=== PATIENT | male | born 1955 | race American Indian/Alaskan Native ===

== ENCOUNTER 2019-07-01 09:56 | Inpatient (IN) | payer OTHER ==
--- NOTE | 2019-07-01 10:59 | Cat Scan Report ---
CT head/brain wo con INDICATION / CLINICAL INFORMATION: 64 years Male; Numbness to right extremities. TECHNIQUE: Routine CT head without contrast. All CT scans at this location are performed using CT dos e reduction for ALARA by means of automated exposure control. COMPARISON: None. FINDINGS: BRAIN / INTRACRANIAL CONTENTS: No acute hemorrhage, mass effect, midline shift, hydrocephalus, or acu te, large territorial infarct. No chronic infarct or atrophy appreciated. There are minimal areas of decreased attenuation in the white matter of the cerebral hemispheres, as well as the anterior gangliocapsular region on the right. These are nonspecific findings and may be r elated to microangiopathy (hypertension, diabetes, atherosclerosis), given the patient's age. CRANIOCERVICAL JUNCTION: No significant abnormality. ORBITS: No significant abnormality of visualized orbits. SINUSES / MASTOIDS: Moderate opacification of the ethmoids seen-left greater than right. ADDITIONAL FINDINGS: None. IMPRESSION: 1. No focal mass, hemorrhage, hydrocephalus, or acute, large territorial infarct. This exam was performed as part of a code stroke protocol. The exam was completed on 07/01/2019 9:45 A M. The exam was reviewed at 9:[address] Huizar was notified at 9:59 AM. Signer Name: Johny Coronado MD, III Signed: 07/01/2019 10:54 AM Workstation Name: [id number]
[2019-07-01 11:02] LABS: Basophils # (Auto) 0.1 K/mm3 (0.0-0.1); Basophils % (Auto) 0.9 % (0.0-1.8); Eosinophils # (Auto) 0.4 K/mm3 (0.0-0.4); Eosinophils % (Auto) 3.8 % (0.0-4.3); Hematocrit 45.7 % (35.5-45.6); Hemoglobin 15.7 gm/dl (11.8-15.2); Lymphocytes # (Auto) 1.9 K/mm3 (1.2-5.4); Lymphocytes % (Auto) 20.3 % (13.4-35.0); Mean Corpuscular HGB Conc 34 % (32-34); Mean Corpuscular Volume 98 fl (84-94); Monocytes # (Auto) 0.5 K/mm3 (0.0-0.8); Monocytes % (Auto) 5.2 % (0.0-7.3); Platelet Count 345 K/mm3 (140-440); Red Blood Count 4.66 M/mm3 (3.65-5.03); Red Cell Distribution Width 13.7 % (13.2-15.2)
--- NOTE | 2019-07-01 11:05 | Emergency Department Report ---
HPI - General Chief Complaint: Neuro Symptoms/Deficit Time Seen by Provider: 07/01/19 10:38 - HPI HPI: 64-year-old male presents to the emergency department with the complaints of some numbness and weakness to his right side. He woke up this mor anisa around 8:30 AM and was feeling normal at that time. About 30 minutes later the patient started to notice some numbness in the right pinky finger. This progressively spread to his right arm and he began feeling as if the right arm was weak. He then noticed some numbness in the right leg and the right side of his face and this is when he drove himself in to be seen. A code stroke was initiated secondary to these symptoms. The patient has a past medical history of hypertension. He is a smoker but denies any illicit drug use. He has a new primary care physician but does not currently know their name. He did not take anything for his symptoms prior to presentation. ED Past Medical Hx - Past Medical History Hx Hypertension: Yes - Surgical History Past Surgical History?: Yes Additional Surgical History: hernia - Social History Smoking Status: Current Every Day Smoker Substance Use Type: None ED Review of Systems ROS: Stated complaint: RT SIDE NUMBNESS Other details as noted in HPI Comment: All other systems reviewed and negative Constitutional: denies: chills, fever Eyes: denies: eye pain, vision change ENT: denies: ear pain, throat pain Respiratory: denies: cough, shortness of breath Cardiovascular: denies: chest pain, palpitations Gastrointestinal: denies: abdominal pain, vomiting Genitourinary: denies: dysuria, discharge Musculoskeletal: denies: back pain, arthralgia Skin: denies: rash, lesions Neurological: weakness, numbness. denies: headache Physical Exam - Physical Exam Vital Signs: Vital Signs 07/01/19 07/01/19 07/01/19 10:03 10:22 10:49 Temperature 97.4 F L 97.4 F L 97.9 F Pulse Rate 83 83 75 Respiratory 18 16 9 L Rate Blood Pressure 151/94 Blood Pressure 151/94 154/94 [Right] O2 Sat by Pulse 98 98 98 Oximetry Physical Exam: GENERAL: The patient is well-developed well-nourished. HEENT: Normocephalic. Atraumatic. Patient has moist mucous membranes. EYES: Extraocular motions are intact. NECK: Supple. Trachea is midline. CHEST/LUNGS: Clear to auscultation. There is no respiratory distress noted. HEART/CARDIOVASCULAR: Regular. There is no tachycardia. There is no murmur. ABDOMEN: Abdomen is soft, nontender. Patient has normal bowel sounds. There is no abdominal distention. SKIN:Skin is warm and dry. . NEURO: The patient is awake, alert, and oriented. The patient is cooperative. No motor deficits. No slurred speech. There is some subjective decreased sensation to the right hand and right side of the face when compared to the left. Normal speech. No pronator drift. No dysmetria. MUSCULOSKELETAL: There is no tenderness or deformity. There is no limitation range of motion. There is no evidence of acute injury. ED Course Vital Signs 07/01/19 07/01/19 07/01/19 10:03 10:22 10:49 Temperature 97.4 F L 97.4 F L 97.9 F Pulse Rate 83 83 75 Respiratory 18 16 9 L Rate Blood Pressure 151/94 Blood Pressure 151/94 154/94 [Right] O2 Sat by Pulse 98 98 98 Oximetry ED Medical Decision Making - Lab Data Result diagrams: 07/01/19 10:50 07/01/19 10:50 - EKG Data -: EKG Interpreted by Nv EKG shows normal: sinus rhythm, axis, intervals, QRS complexes, ST-T waves Rate: normal - EKG Data When compared to previous EKG there are: previous EKG unavailable Interpretation: normal EKG - Radiology Data Radiology results: report reviewed CT head/brain wo con INDICATION / CLINICAL INFORMATION: 64 years Male; Numbness to right extremities. TECHNIQUE: Routine CT head without contrast. All CT scans at this location are performed using CT dose reduction for ALARA by means of automated exposure control. COMPARISON: None. FINDINGS: BRAIN / INTRACRANIAL CONTENTS: No acute hemorrhage, mass effect, midline shift, hydrocephalus, or acute, large territorial infarct. No chronic infarct or atrophy appreciated. There are minimal areas of decreased attenuation in the white matter of the cerebral hemispheres, as well as the anterior gangliocapsular region on the right. These are nonspecific findings and may be related to microangiopathy (hypertension, diabetes, atherosclerosis), given the patient's age. CRANIOCERVICAL JUNCTION: No significant abnormality. ORBITS: No significant abnormality of visualized orbits. SINUSES / MASTOIDS: Moderate opacification of the ethmoids seen-left greater than right. ADDITIONAL FINDINGS: None. IMPRESSION: 1. No focal mass, hemorrhage, hydrocephalus, or acute, large territorial infarct. - Medical Decision Making His patient presents to the emergency department with some right arm weakness and right sided numbness that started after the patient woke up. For this windy son a code stroke was initiated. CT scan of the head without contrast did not show any mass, bleed, hydrocephalus, large territorial infarct, or any other acute process. The patient was seen by the telemedicine neurologist gave him a NIH stroke scale of 1 did not feel the patient was a TPA candidate. He did not feel that it was consistent with a large territorial infarct and therefore did not require CT angiography to be completed. Patient's labs have been unremarkable. Vital signs stable throughout his ED course. The patient does not have any signs of weakness and maybe showing some improvement from the symptoms that brought him in. This all appears consistent with a TIA. The patient will be admitted to the hospital for further evaluation and treatment and was accepted for admission by the hospitalist, Dr. Mares. - Differential Diagnosis CVA, TIA, Dysrythmia, Electrolyte abnormalities, hypoglycemia Critical Care Time: No Critical care attestation.: If time is entered above; I have spent that time in minutes in the direct care of this critically ill patient, excluding procedure time. ED Disposition Clinical Impression: TIA (transient ischemic attack) Hypertension Qualifiers: Hypertension type: essential hypertension Qualified Code(s): I10 - Essential (primary) hypertension Disposition: OP ADMIT IP TO THIS HOSP Is pt being admited?: Yes Condition: Fair Time of Disposition: 11:49
[2019-07-01 11:11] LABS: INR 0.93 (0.87-1.13)
[2019-07-01 11:12] LABS: Partial Thromboplastin Time 29.8 Sec. (24.2-36.6); Thrombin Time 16.1 Sec. (15.1-19.6)
[2019-07-01 11:23] LABS: Creatine Kinase MB 1.2 ng/mL (0.0-4.0)
[2019-07-01 11:24] LABS: Alanine Aminotransferase 9 units/L (7-56); Albumin 4.4 g/dL (3.9-5); BUN/Creatinine Ratio 11; Blood Urea Nitrogen 11 mg/dL (9-20); Calcium 9.6 mg/dL (8.4-10.2); Hemolysis Index 2
[2019-07-01 13:56] LABS: Bilirubin,Urine NEG (Negative); Blood,Urine MOD (Negative); Color,Urine Yellow (Yellow); Protein,Urine <15 mg/dL mg/dL (Negative); Urobilinogen,Urine < 2.0 mg/dL (<2.0)
[2019-07-01] MEDS ORDERED: ACETAMINOPHEN 325 MG TAB PO PRN (17:23)
[2019-07-01] MEDS ORDERED: ONDANSETRON 4 MG/2 ML INJ IV PRN (17:23)
[2019-07-01] MEDS ORDERED: HYDROmorphone 1 MG/1 ML INJ ONE ×2 (17:52→21:29)
[2019-07-01] MEDS: HYDROmorphone 1 MG/1 ML INJ IV PRN ×2 (18:01→21:39)
--- NOTE | 2019-07-01 19:37 | XRay Report ---
Orbits 4 views INDICATION: Orbital pain. IMPRESSION: No metallic foreign body is identified over the visualized skull/orbits. No fracture. Signer Name: Dangelo Obando MD Signed: 07/01/2019 7:33 PM Workstation Name: [id number]
[2019-07-01] MEDS ORDERED: POTASSIUM CHLORIDE ER 20 MEQ TAB PO ONE (20:10)
[2019-07-01] MEDS ORDERED: hydroCHLOROthiazide 25 MG TAB ONE (20:10)
[2019-07-01] MEDS ORDERED: LISINOPRIL 20 MG TAB ONE (20:14)
[2019-07-01] MEDS: POTASSIUM CHLORIDE ER 10 MEQ TAB PO SCH (20:18)
[2019-07-01] MEDS: LISINOPRIL 40 MG TAB PO SCH (20:18)
[2019-07-01] MEDS: hydroCHLOROthiazide 25 MG TAB PO SCH (20:18)
[2019-07-01] MEDS ORDERED: FAMOTIDINE 20 MG TAB ONE (21:28)
[2019-07-01] MEDS: FAMOTIDINE 10 MG TAB PO SCH (21:38)
--- NOTE | 2019-07-02 06:45 | Event Note ---
Date: 07/01/19 TIA MRI/CDS/ECHO ordered HTN
--- NOTE | 2019-07-02 07:15 | History and Physical Report ---
CHIEF COMPLAINT: Right-sided numbness, which lasted for about 1 hour. HISTORY OF PRESENT ILLNESS: A 64-year-old male with a past medical history significant for hypertension, developed numbness and weakness on the right side, starting around 8:30 a.m., came back to normal within 1 hour. The patient felt that his right arm was weak. Also, notices numbness in the right leg and the right side of his face. Drove himself to the Emergency Room to be seen. Code stroke was initiated. The patient is also a smoker, but denies any alcohol or drug use. No similar symptoms in the past. No chest pain. No coronary artery disease. PAST MEDICAL HISTORY: Significant for hypertension. PAST SURGICAL HISTORY: Significant for hernia repair. SOCIAL HISTORY: Smokes about pack a day. FAMILY HISTORY: Hypertension. REVIEW OF SYSTEMS: Significant for transient right-sided numbness involving the face, right arm and right lower extremity. Also, transient weakness. Both have normalized within an hour's time. Otherwise, review of systems negative. A 14-point review of systems done. PHYSICAL EXAMINATION: GENERAL: Elderly male, cooperative during examination. VITAL SIGNS: Temperature 97.4, pulse is 83, respiratory rate is 18, blood pressure 151/94, sats are 98%. HEENT: Unremarkable. Pupils equal and reactive. NECK: Supple, no lymphadenopathy, no thyromegaly. LUNGS: Clear to auscultation and percussion. Good air entry. CARDIOVASCULAR: S1, S2 heard. No gallop, no murmur, no rub. Apical impulse in left fifth intercostal space and midclavicular line. ABDOMEN: Soft and benign. No hepatosplenomegaly. No guarding, no rigidity. Hernial orifices are normal. EXTREMITIES: Good pedal pulses. No pedal edema. CENTRAL NERVOUS SYSTEM: Alert and oriented x 4, nonfocal exam. LABORATORY DATA: CBC and electrolytes are normal. Glucose slightly high at 111. EKG normal sinus rhythm, normal heart rate. CT of the head, no acute findings. ASSESSMENT AND PLAN: 1. Transient ischemic attack. The patient was initiated on MRI brain and carotid duplex scan and echocardiogram. The patient started on aspirin. Neurology consult requested. 2. Hypertension. Continue antihypertensives. 3. Deep venous thrombosis prophylaxis, heparin 5000 q.12. JOB# [id number] [facility]
--- NOTE | 2019-07-02 07:44 | Event Note ---
Date: 07/01/19 [facility] Date of Service: 07/01/2019 10:36:56 Impression: RO Acute Ischemic Stroke Comments: The patient had left sided weakness and numbness that was noted but is now back at his baseline. q 1 hour neuro checks. No tPA was given because of no signs on examination. Metrics: Last Known Well: 07/01/2019 08:30:00 [facility] Notification Time: 07/01/2019 10:36:21 Arrival Time: 07/01/2019 10:36:56 Stamp Time: 07/01/2019 10:36:56 Time First Login Attempt: 07/01/2019 10:39:11 Video Start Time: 07/01/2019 10:39:11 Symptoms: numbness to the right hand, at 9 am, and then progressed and the whole arm became numb NIHSS Start Assessment Time: 07/01/2019 10:46:42 Patient is not a candidate for tPA. Patient was not deemed candidate for tPA thrombolytics because of Resolved symptoms. Video End Time: 07/01/2019 11:00:00 CT head showed no acute hemorrhage or acute core infarct. Advanced imaging was reviewed, No Indication of Large Vessel Occlusive Thrombus. Radiologist was called back for review of advanced imaging on 07/01/2019 11:00:00 ED Physician notified of diagnostic impression and management plan on 07/01/2019 11:00:00 Our recommendations are outlined below. Recommendations: Activate Stroke Protocol Admission/Order Set Stroke/Telemetry Floor Neuro Checks Bedside Swallow Eval DVT Prophylaxis IV Fluids, Normal Saline Head of Bed Below 30 Degrees Euglycemia and Avoid Hyperthermia (PRN Acetaminophen) Antiplatelet Therapy Recommended Recommended Scan: MRI Head with and Without Contrast Lipid Panel to Be Obtained, if Not Done in the Last Three Months Therapies: Physical Therapy, Occupational Therapy, Speech Therapy Assessment When Applicable Dysphaghia Screen: Swallow Evaluation, Bedside NPO Until Swallow Evaluation History of Present Illness: Patient is a 64 year old Male. Patient was brought by EMS for symptoms of numbness to the right hand, at 9 am, and then progressed and the whole arm became numb His whole right leg then became numb and left side of face. He feels that the numbness is strating to subside and is not as bad as it was. He feels back to his baseline. CT head showed no acute hemorrhage or acute core infarct. Last seen normal was within 4.5 hours. There is no history of hemorrhagic complications or intracranial hemorrhage. There is no history of Recent Anticoagulants. There is no history of recent major surgery. There is no history of recent stroke. Examination: BP(79), 1A: Level of Consciousness - Alert; keenly responsive + 0 1B: Ask Month and Age - Both Questions Right + 0 1C: Blink Eyes & Squeeze Hands - Performs Both Tasks + 0 2: Test Horizontal Extraocular Movements - Normal + 0 3: Test Visual John - No Visual Loss + 0 4: Test Facial Palsy (Use Grimace if Obtunded) - Normal symmetry + 0 5A: Test Left Arm Motor Drift - No Drift for 10 Seconds + 0 5B: Test Right Arm Motor Drift - No Drift for 10 Seconds + 0 6A: Test Left Leg Motor Drift - No Drift for 5 Seconds + 0 6B: Test Right Leg Motor Drift - No Drift for 5 Seconds + 0 7: Test Limb Ataxia (FNF/Heel-Kirkland) - No Ataxia + 0 8: Test Sensation - Normal; No sensory loss + 0 9: Test Language/Aphasia - Normal; No aphasia + 0 10: Test Dysarthria - Normal + 0 11: Test Extinction/Inattention - No abnormality + 0 NIHSS Score: 0 Patient was informed the Neurology Consult would happen via TeleHealth consult by way of interactive audio and video telecommunications and consented to receiving care in this manner. Due to the immediate potential for life-threatening deterioration due to underlying acute neurologic illness, I spent 35 minutes providing critical care. This time includes time for face to face visit via telemedicine, review of medical records, imaging studies and discussion of findings with providers, the patient and/or family. Dr Melecio Wahl [facility] Case [id number]
[2019-07-02 08:23] LABS: Basophils # (Auto) 0.1 K/mm3 (0.0-0.1); Basophils % (Auto) 1.2 % (0.0-1.8); Eosinophils # (Auto) 0.4 K/mm3 (0.0-0.4); Eosinophils % (Auto) 5.5 % (0.0-4.3); Hematocrit 44.5 % (35.5-45.6); Hemoglobin 14.9 gm/dl (11.8-15.2); Lymphocytes # (Auto) 1.8 K/mm3 (1.2-5.4); Lymphocytes % (Auto) 26.5 % (13.4-35.0); Mean Corpuscular HGB Conc 34 % (32-34); Mean Corpuscular Volume 99 fl (84-94); Monocytes # (Auto) 0.6 K/mm3 (0.0-0.8); Monocytes % (Auto) 9.2 % (0.0-7.3); Platelet Count 322 K/mm3 (140-440); Red Blood Count 4.51 M/mm3 (3.65-5.03); Red Cell Distribution Width 13.6 % (13.2-15.2)
[2019-07-02 08:53] LABS: Alanine Aminotransferase 8 units/L (7-56); BUN/Creatinine Ratio 12; Blood Urea Nitrogen 12 mg/dL (9-20); Calcium 9.2 mg/dL (8.4-10.2); Hemolysis Index 25
[2019-07-02] MEDS ORDERED: ASPIRIN 325 MG TAB PO SCH (10:00)
[2019-07-02] MEDS: LISINOPRIL 40 MG TAB PO SCH (11:18)
[2019-07-02] MEDS: hydroCHLOROthiazide 25 MG TAB PO SCH (11:18)
[2019-07-02] MEDS: FAMOTIDINE 10 MG TAB PO SCH ×2 (11:18→21:47)
[2019-07-02] MEDS: HEPARIN 5,000 UNIT/1 ML VIAL SUB-Q SCH ×2 (11:19→21:47)
--- NOTE | 2019-07-02 11:24 | Magnetic Resonance Report ---
MRI BRAIN WITHOUT CONTRAST INDICATION / CLINICAL INFORMATION: TIA. Stroke TECHNIQUE: Multisequence, multiplanar images were obtained. COMPARISON: None available. FINDINGS: CEREBRAL and CEREBELLAR HEMISPHERES: A solitary 7 mm focus of diffusion restriction is identified in the left parieto-occipital region on diffusion image 15. No convincing corresponding decreased signal is identified on the ADC map in this area which may be secondary to its small size. No other areas o f diffusion restriction are identified. Minimal nonspecific chronic white matter changes are identifi ed in the frontal and parietal subcortical white matter. No evidence for hemorrhage, mass, chronic in farct or extra-axial fluid collection. VENTRICLES: Normal in size and configuration for age. VISUALIZED ORBITS: No significant abnormality. VISUALIZED PARANASAL SINUSES: Mild mucosal thickening is noted throughout all paranasal sinuses. The mastoid air cells are clear. ADDITIONAL FINDINGS: None. IMPRESSION: 7 mm focus of subacute ischemia in the left posterior watershed region as described. Minimal chronic white matter changes which appear appropriate for this person's age. Mild chronic pansinusitis Signer Name: Jose Roberto Rich Jr, MD Signed: 07/02/2019 11:20 AM Workstation Name: [id number]
--- NOTE | 2019-07-02 12:17 | Vascular Lab Report ---
BILATERAL CAROTID DOPPLER ULTRASOUND INDICATION : TIA TECHNIQUE: Grayscale and color Doppler imaging performed through the neck. COMPARISON: None FINDINGS: Right: There is mild partially calcified plaque in the distal CCA. Peak systolic velocity in the CC A is 70 cm/s with end-diastolic velocity of 21 cm/s. Peak systolic velocity in the proximal ICA is 66 cm/s with end-diastolic velocity of 182 cm/s. ICA to CCA ratio is less than 2. There is antegrade f low in the ECA and the vertebral artery. Left: There is no significant atherosclerotic disease. Peak systolic velocity in the CCA is 92 cm/s w ith end-diastolic velocity of 28 cm/s. Peak systolic velocity in the proximal ICA is 62 cm/s with end -diastolic velocity of 13 cm/s. ICA to CCA ratio is less than 2. There is antegrade flow in the ECA and the vertebral artery. IMPRESSION: No hemodynamically significant stenosis by NASCET criteria. There is less than 50% lumina l narrowing throughout both carotid systems by Doppler velocities. Signer Name: Jose Roberto Rich Jr, MD Signed: 07/02/2019 12:13 PM Workstation Name: [id number]
--- NOTE | 2019-07-02 18:02 | Progress Note ---
Assessment and Plan Assessment and plan: Patient is a 64 yo man who is a [employer] from [place] with a history of tobacco dependency and hypertension who was travelling thru this area and developed right sided weakness. Teleneurologist determined patient was not a candidate for tPA because symptoms had resolved with low NIHSS score of 1. * Brain MRI Impression: 7 mm focus of subacute ischemia in the left posterior watershed region...Mild chronic pansinusitis * TTE est EF 55-60%, no PFO * Carotid U/S negative for critical stenosis Acute Ischemic Stroke: consulted Neurology, treat with ASA and statin Tobacco dependency: food counselor on stopping Hypertension: low salt diet, permissive elevation History Interval history: Patient was seen and examined. Follow-up on current diagnosis of CVA. Overnight uneventful as no events directly reported to me. Patient denies any chest pain, shortness breath, nausea/vomiting or severe headaches. Imaging, nursing note, chart, labs and old chart reviewed. Discussed with patient. Hospitalist Physical - Physical exam Narrative exam: Gen: WDWN, NAD, Awake, Alert, Orientated HEENT: NCAT, EOMI, PERRL, OP Clear Neck: supple, no adenopathy, no thyromegaly, no JVD CVS/Heart: RRR, normal S1S2, pulses present bilaterally Chest/Lungs: CTA B, Symmetrical chest expansion, good air entry bilaterally GI/Abdomen: soft, NTND, good bowel sounds, no guarding or rebound /Bladder: no suprapubic tenderness, no CVA or paraspinal tenderness Extermity/Skin: no c/c/e, no obvious rash MSK: FROM x 4 Neuro: CN 2-12 grossly intact, no new focal deficits Psych: calm - Constitutional Vitals: Temp Pulse Resp BP Pulse Ox 98.2 F 71 16 125/81 94 07/02/19 16:57 07/02/19 16:57 07/02/19 16:57 07/02/19 16:57 07/02/19 16:57 Results - Labs CBC & Chem 7: 07/02/19 07:42 07/02/19 07:42 Labs: Laboratory Last Values WBC 6.6 K/mm3 (4.5-11.0) 07/02/19 07:42 RBC 4.51 M/mm3 (3.65-5.03) 07/02/19 07:42 Hgb 14.9 gm/dl (11.8-15.2) 07/02/19 07:42 Hct 44.5 % (35.5-45.6) 07/02/19 07:42 MCV 99 fl (84-94) H 07/02/19 07:42 MCH 33 pg (28-32) H 07/02/19 07:42 MCHC 34 % (32-34) 07/02/19 07:42 RDW 13.6 % (13.2-15.2) 07/02/19 07:42 Plt Count 322 K/mm3 (140-440) 07/02/19 07:42 Lymph % (Auto) 26.5 % (13.4-35.0) 07/02/19 07:42 Dukes % (Auto) 9.2 % (0.0-7.3) H 07/02/19 07:42 Eos % (Auto) 5.5 % (0.0-4.3) H 07/02/19 07:42 Baso % (Auto) 1.2 % (0.0-1.8) 07/02/19 07:42 Lymph # 1.8 K/mm3 (1.2-5.4) 07/02/19 07:42 Dukes # 0.6 K/mm3 (0.0-0.8) 07/02/19 07:42 Eos # 0.4 K/mm3 (0.0-0.4) 07/02/19 07:42 Baso # 0.1 K/mm3 (0.0-0.1) 07/02/19 07:42 Seg Neutrophils % 57.6 % (40.0-70.0) 07/02/19 07:42 Seg Neutrophils # 3.8 K/mm3 (1.8-7.7) 07/02/19 07:42 PT 12.6 Sec. (12.2-14.9) 07/01/19 10:50 INR 0.93 (0.87-1.13) 07/01/19 10:50 APTT 29.8 Sec. (24.2-36.6) 07/01/19 10:50 Thrombin Time 16.1 Sec. (15.1-19.6) 07/01/19 10:50 Sodium 138 mmol/L (137-145) 07/02/19 07:42 Potassium 4.5 mmol/L (3.6-5.0) 07/02/19 07:42 Chloride 101.6 mmol/L (98-107) 07/02/19 07:42 Carbon Dioxide 23 mmol/L (22-30) 07/02/19 07:42 Anion Gap 18 mmol/L 07/02/19 07:42 BUN 12 mg/dL (9-20) 07/02/19 07:42 Creatinine 1.0 mg/dL (0.8-1.5) 07/02/19 07:42 Estimated GFR > 60 ml/min 07/02/19 07:42 BUN/Creatinine Ratio 12 % 07/02/19 07:42 Glucose 103 mg/dL (75-100) H 07/02/19 07:42 POC Glucose 104 (70-105) 07/01/19 11:07 Calcium 9.2 mg/dL (8.4-10.2) 07/02/19 07:42 Total Bilirubin 0.40 mg/dL (0.1-1.2) 07/02/19 07:42 AST 15 units/L (5-40) 07/02/19 07:42 ALT 8 units/L (7-56) 07/02/19 07:42 Alkaline Phosphatase 75 units/L (35-129) 07/02/19 07:42 Total Creatine Kinase 53 units/L (55-170) L 07/01/19 10:50 CK-MB (CK-2) 1.2 ng/mL (0.0-4.0) 07/01/19 10:50 CK-MB (CK-2) Rel Index 2.2 (0-4) 07/01/19 10:50 Troponin T < 0.010 ng/mL (0.00-0.029) 07/01/19 10:50 Total Protein 7.4 g/dL (6.3-8.2) 07/02/19 07:42 Albumin 4.0 g/dL (3.9-5) 07/02/19 07:42 Albumin/Globulin Ratio 1.2 % 07/02/19 07:42 Urine Color Yellow (Yellow) 07/01/19 13:21 Urine Turbidity Clear (Clear) 07/01/19 13:21 Urine pH 6.0 (5.0-7.0) 07/01/19 13:21 Ur Specific [place] 1.013 (1.003-1.030) 07/01/19 13:21 Urine Protein <15 mg/dl mg/dL (Negative) 07/01/19 13:21 Urine Glucose (UA) Neg mg/dL (Negative) 07/01/19 13:21 Urine Ketones Neg mg/dL (Negative) 07/01/19 13:21 Urine Blood Mod (Negative) 07/01/19 13:21 Urine Nitrite Neg (Negative) 07/01/19 13:21 Urine Bilirubin Neg (Negative) 07/01/19 13:21 Urine Urobilinogen < 2.0 mg/dL (<2.0) 07/01/19 13:21 Ur Leukocyte Esterase Neg (Negative) 07/01/19 13:21 Urine WBC (Auto) 1.0 /HPF (0.0-6.0) 07/01/19 13:21 Urine RBC (Auto) 13.0 /HPF (0.0-6.0) 07/01/19 13:21 Active Medications - Current Medications Current Medications: Generic Name Dose Route Start Last Admin Trade Name Freq PRN Reason Stop Dose Admin Acetaminophen 650 mg 07/01/19 17:23 Tylenol PO Q4H PRN Pain MILD(1-3)/Fever >100.5/CANSECO Aspirin 325 mg 07/02/19 10:00 07/02/19 11:18 Aspirin PO 325 mg QDAY JANNY Administration Famotidine 10 mg 07/01/19 22:00 07/02/19 11:18 Pepcid PO 10 mg BID JANNY Administration Heparin Sodium (Porcine) 5,000 unit 07/02/19 10:00 07/02/19 11:19 Heparin SUB-Q Not Given Q12HR JANNY Hydrochlorothiazide 25 mg 07/01/19 20:00 07/02/19 11:18 Hctz PO 25 mg QDAY JANNY Administration Hydromorphone HCl 0.5 mg 07/01/19 17:23 07/01/19 21:39 Dilaudid IV 0.5 mg Q3H PRN Administration Pain , Severe (7-10) Lisinopril 40 mg 07/01/19 20:00 07/02/19 11:18 Zestril PO 40 mg QDAY JANNY Administration Ondansetron HCl 4 mg 07/01/19 17:23 Zofran IV Q8H PRN Nausea And Vomiting Potassium Chloride 10 meq 07/01/19 20:00 07/01/19 20:18 K-Dur PO 10 meq Q24H JANNY Administration Sodium Chloride 10 ml 07/01/19 22:00 07/02/19 11:21 Sodium Chloride Flush Syringe 10 Ml IV 10 ml BID JANNY Administration Sodium Chloride 10 ml 07/01/19 17:23 Sodium Chloride Flush Syringe 10 Ml IV PRN PRN LINE FLUSH
[2019-07-02] MEDS: POTASSIUM CHLORIDE ER 10 MEQ TAB PO SCH (21:47)
--- NOTE | 2019-07-02 22:24 | Consultation ---
History of Present Illness Consult date: 07/02/19 Reason for Consult: Right arm weakness and numbness Chief complaint: Right arm weakness and numbness History of present illness: Patient is 64-year-old man with a history of hypertension. Yesterday that approximately 8:30 AM, he woke with the symptom of right finger numbness. Over the next half hour, the numbness began to involve his entire right arm, right leg, and ultimately right side of the face. Patient also began experience mild right-sided weakness. He was then brought to the [facility] for evaluation. When patient was evaluated by telling neurology, his NIHSS was 0, and he was therefore not felt to be a candidate for TPA. Today, the patient states that his symptoms have entirely resolved. Past History Past Medical History: hypertension Social history: smoking Family history: no significant family history Medications and Allergies Allergies Allergy/AdvReac Type Severity Reaction Status Date / Time No Known Allergies Allergy Unverified 07/01/19 09:58 Home Medications Medication Instructions Recorded Confirmed Last Taken Type hydroCHLOROthiazide [HCTZ] 25 mg PO QDAY 07/01/19 07/01/19 06/30/19 History lisinopriL [Zestril TAB] 40 mg PO QDAY 07/01/19 07/01/19 06/30/19 History Active Meds: Active Medications Acetaminophen (Tylenol) 650 mg PO Q4H PRN PRN Reason: Pain MILD(1-3)/Fever >100.5/[place] Aspirin (Aspirin) 325 mg PO QDAY ON LICENSE OF [facility] Last Admin: 07/02/19 11:18 Dose: 325 mg Documented by: Atorvastatin Calcium (Lipitor) 40 mg PO QHS ON LICENSE OF [facility] Last Admin: 07/02/19 21:47 Dose: 40 mg Documented by: Famotidine (Pepcid) 10 mg PO BID ON LICENSE OF [facility] Last Admin: 07/02/19 21:47 Dose: 10 mg Documented by: Heparin Sodium (Porcine) (Heparin) 5,000 unit SUB-Q Q12HR ON LICENSE OF [facility] Last Admin: 07/02/19 21:47 Dose: 5,000 unit Documented by: Hydrochlorothiazide (Hctz) 25 mg PO QDAY ON LICENSE OF [facility] Last Admin: 07/02/19 11:18 Dose: 25 mg Documented by: Hydromorphone HCl (Dilaudid) 0.5 mg IV Q3H PRN PRN Reason: Pain , Severe (7-10) Last Admin: 07/01/19 21:39 Dose: 0.5 mg Documented by: Lisinopril (Zestril) 40 mg PO QDAY ON LICENSE OF [facility] Last Admin: 07/02/19 11:18 Dose: 40 mg Documented by: Ondansetron HCl (Zofran) 4 mg IV Q8H PRN PRN Reason: Nausea And Vomiting Potassium Chloride (K-Dur) 10 meq PO Q24H ON LICENSE OF [facility] Last Admin: 07/02/19 21:47 Dose: 10 meq Documented by: Sodium Chloride (Sodium Chloride Flush Syringe 10 Ml) 10 ml IV BID ON LICENSE OF [facility] Last Admin: 07/02/19 21:47 Dose: 10 ml Documented by: Sodium Chloride (Sodium Chloride Flush Syringe 10 Ml) 10 ml IV PRN PRN PRN Reason: LINE FLUSH Review of Systems All systems: negative Neurological: weakness, numbness Physical Examination - Vital Signs Vital Signs: Vital Signs Temp Pulse Resp BP Pulse Ox 97.4 F L 83 18 151/94 98 07/01/19 10:03 07/01/19 10:03 07/01/19 10:03 07/01/19 10:03 07/01/19 10:03 - Physical Exam Narrative exam: Patient is alert, awake, oriented x4, follows complex commands. PERRL, EOMI, VFF, no facial weakness noted, tongue midline, b/l intact to LT. No dysarthria or aphasia noted. 5/5 strength in all extremities. B/l intact to LT. B/l intact to FTN and HTS. 2+ reflexes throughout. - Constitutional General appearance: comfortable - EENT EENT: Present: ATNC, PERRL, mucous membranes moist, hearing intact, vision intact - Respiratory Respiratory: Present: lungs clear, normal breath sounds - Cardiovascular Cardiovascular: Present: regular rate, normal S1, normal S2 Extremities: Present: no clubbing, cyanosis, no inflammation - Gastrointestinal Gastrointestinal: Present: normoactive bowel sounds, soft, non-tender - Integumentary Integumentary: Present: normal - Musculoskeletal Musculoskeletal: Present: no fluid collection, no pain - Psychiatric Psychiatric: Present: mood/affect appropriate - Level of Consciousness 1a. Level of Consciousness: alert/keenly responsive - LOC Questions 1b. LOC Questions: answers both correctly - LOC Command 1c. LOC Commands: performs tasks correctly - Best Gaze 2. Best Gaze: normal - Visual 3. Visual: no visual loss - Facial Palsy 4. Facial Palsy: normal symmetrical movement - Motor Arm 5a. Motor Arm Left: no drift 5b. Motor Arm Right: no drift - Motor Leg 6a. Motor Leg Left: no drift 6b. Motor Leg Right: no drift - Limb Ataxia 7. Limb Ataxia: absent - Sensory 8. Sensory: normal - Best Language 9. Best Language: no aphasia - Dysarthria 10. Dysarthria: normal - Extinction and Inattention 11. Extinction/Inattention: no abnormality - Scoring Total Score: 0 Stroke Severity: No Stroke Symptoms Results - Laboratory Findings CBC and BMP: 07/02/19 07:42 07/02/19 07:42 Abnormal Lab Findings: Abnormal Labs 07/01/19 07/01/19 07/02/19 10:50 10:50 07:42 Hgb 15.7 H Hct 45.7 H MCV 98 H 99 H MCH 34 H 33 H [place] % (Auto) 9.2 H Eos % (Auto) 5.5 H Glucose 111 H Total Creatine Kinase 53 L 07/02/19 07:42 Hgb Hct MCV MCH [place] % (Auto) Eos % (Auto) Glucose 103 H Total Creatine Kinase Assessment and Plan Patient is a 64-year-old man with a history of hypertension who presents with right-sided numbness and weakness area according patient's clinical findings, the patient is had an acute ischemic stroke. Plan: 1. Stroke: CT head: No acute abnormalities - Check CTA head and neck - Echo: EF 55-60%, LA normal size, bubble study negative. - MRI Brain: Revealed a left parietaloccipital region infarct. - Recommend dual antiplatelet therapy with aspirin 81 mg daily and Plavix 75 mg daily for one month, after which Plavix can be stopped. - Continue statin. LDL goal <70. LDL pending. - Telemetry monitoring while in house. - If CTA head and neck are not indicative of any significant stenosis, would recommend for long-term Cardiac monitoring with 30 day MCOT or ILR. PT/OT/ST. DVT prophylaxis: Recommend lovenox - Recommended for patient to stop smoking. He was counseled in this regards. 2. Hypertension: - Recommend target normotension. Will sign off, as I am not covering neurology service over the weekend. Recommend consult neuroligst covering service over the weekend for further neurologic monitoring and management. Thank you for allowing me to take part in the care of this patient.
[2019-07-03 07:07] LABS: Chol/HDL Ratio 4.72 %
[2019-07-03] MEDS: HEPARIN 5,000 UNIT/1 ML VIAL SUB-Q SCH (09:17)
[2019-07-03] MEDS: LISINOPRIL 40 MG TAB PO SCH (09:17)
[2019-07-03] MEDS: hydroCHLOROthiazide 25 MG TAB PO SCH (09:17)
[2019-07-03] MEDS: FAMOTIDINE 10 MG TAB PO SCH (09:17)
[2019-07-03 09:49] VITALS: BP 100/70
[2019-07-03] MEDS ORDERED: ASPIRIN EC 81 MG TAB PO SCH (10:00)
[2019-07-03] MEDS ORDERED: CLOPIDOGREL 75 MG TAB PO SCH (10:00)
--- NOTE | 2019-07-03 13:12 | Discharge Summary ---
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 Teleneurologist determined patient was not a candidate for tPA because symptoms had resolved with low NIHSS score of 1. * Brain MRI Impression: 7 mm focus of subacute ischemia in the left posterior watershed region...Mild chronic pansinusitis * TTE est EF 55-60%, no PFO * Carotid U/S negative for critical stenosis Acute Ischemic Stroke: consulted Neurology, treat with ASA, plavix x 1 month then ASA only daily and statin, we discussed CTA head and neck but he really doesn't want the dye exposure Tobacco dependency: curriculum counselor on stopping Hypertension: low salt diet, permissive elevation Disposition: DC-01 TO HOME OR SELFCARE Time spent for discharge: 32 min Core Measure Documentation - Palliative Care Palliative Care/ Comfort Measures: Not Applicable - Core Measures Any of the following diagnoses?: none - VTE Discharge Requirements Deep Vein Thrombosis/Pulmonary Embolism Present on Admission: No Has pt received <5 days of overlap therapy or INR<2.0: No Anticoagulant overlap therapy prescribed at discharge: No Contraindication No Overlap Therapy order at DC: Not Indicated Exam - Physical Exam Narrative exam: Gen: WDWN, NAD, Awake, Alert, Orientated HEENT: NCAT, EOMI, PERRL, OP Clear Neck: supple, no adenopathy, no thyromegaly, no JVD CVS/Heart: RRR, normal S1S2, pulses present bilaterally Chest/Lungs: CTA B, Symmetrical chest expansion, good air entry bilaterally GI/Abdomen: soft, NTND, good bowel sounds, no guarding or rebound /Bladder: no suprapubic tenderness, no CVA or paraspinal tenderness Extermity/Skin: no c/c/e, no obvious rash MSK: FROM x 4 Neuro: CN 2-12 grossly intact, no new focal deficits Psych: calm - Constitutional Vitals: Temp Pulse Resp BP Pulse Ox 98.0 F 59 L 18 100/70 97 07/03/19 07:38 07/03/19 04:22 07/03/19 07:38 07/03/19 07:38 07/03/19 04:22 Plan Activity: no driving until cleared by PCP, other (no strenous activity including work unless cleared by your PCP) Diet: low salt Additional Instructions: see PCP in [place] as soon as possible Follow up with: PRIMARY CARE, [Primary Care Provider] - 7 Days Prescriptions: AtorvaSTATin [Lipitor] 40 mg PO QHS #30 tablet Aspirin EC [Halfprin EC] 81 mg PO QDAY #30 tablet hydroCHLOROthiazide [HCTZ] 25 mg PO QDAY #30 tab Potassium Chloride [K-Dur] 10 meq PO Q24H #30 tablet Clopidogrel [Plavix] 75 mg PO QDAY #30 tablet lisinopriL [Zestril TAB] 40 mg PO QDAY #30 tab
== END 2019-07-03 14:50 | disposition home or self-care (01) | DRG 66 ==
LOC: ED 09:56 → 4A 11:49 → OBSVTOIN 07-02 15:55
PROVIDERS: ADMIT Internal Medicine; ATTEND Internal Medicine
DX: I63.9 Cerebral infarction, unspecified (principal); I10 Essential (primary) hypertension; R29.701 NIHSS score 1; F17.210 Nicotine dependence, cigarettes, uncomplicated; G83.21 Monoplegia of upper limb affecting right dominant side; Z71.6 Tobacco abuse counseling
CPT/HCPCS: 36415; 70200; 70450; 70551; 80053; 80061; 81001; 82550; 82553; 82962; 84443; 84484; 85025; 85610; 85670; 85730; 93005; 93010; 93306; 93880; 96374; G0378; A9270-GY; J1170; J1644